=== PATIENT | male | born 1980 | race African-American/Black ===

== ENCOUNTER 2018-09-05 05:04 | Emergency (ER) | payer SELFPAY ==
[~2018-09-05] VITALS: Ht 189.2 cm; Wt 95.9 kg
[~2018-09-05 05:04] MED LIST: ALBU8HFA IH; METF-960 PO
[2018-09-05 05:24] LABS: GLUCOSE,POINT OF CARE 190 MG/DL (70-110)
[2018-09-05 06:15] VITALS: BP 138/83
== END 2018-09-05 06:50 | disposition home or self-care (01) ==
LOC: EMS 05:04
DX: S60.221A Contusion of right hand, initial encounter (principal); J45.909 Unspecified asthma, uncomplicated; E11.9 Type 2 diabetes mellitus without complications; F17.210 Nicotine dependence, cigarettes, uncomplicated; F12.90 Cannabis use, unspecified, uncomplicated; Y35.811A Legal intervention involving manhandling, law enforcement official injured, initial encounter; Y93.89 Activity, other specified; Y92.89 Other specified places as the place of occurrence of the external cause; Y99.8 Other external cause status
CPT/HCPCS: 99406

== ENCOUNTER 2022-05-15 18:37 | Emergency (ER) | payer MEDICAID ==
[~2022-05-15] VITALS: Ht 188 cm; Wt 109.1 kg
[2022-05-15] MEDS ORDERED: CefTRIAXone SODIUM 1 GM/VIAL IM ONE (19:30)
[2022-05-15] MEDS ORDERED: LIDOCAINE/PF 1% 2 ML VIAL IM ONE (19:30)
[2022-05-15] MEDS ORDERED: DOXYCYCLINE HYCLATE 100 MG TABLET PO ONE (19:30)
[2022-05-15] MEDS ORDERED: INSULIN REGULAR, HUMAN 100 UNITS/ML SQ ONE (19:30)
[2022-05-15 20:05] LABS: GLUCOSE,POINT OF CARE 293 MG/DL (70-110)
[2022-05-15 20:15] VITALS: BP 165/80
[2022-05-15] MEDS ORDERED: DOXY-354 PO (20:17)
[2022-05-15] MEDS ORDERED: CEPH-558 PO (20:17)
[2022-05-15] MEDS ORDERED: METF-1211 PO (20:17)
[2022-05-15] MEDS ORDERED: LANC-893 TP (20:17)
[2022-05-15] MEDS ORDERED: glucometer (20:17)
== END 2022-05-15 20:36 | disposition home or self-care (01) ==
LOC: EMS 18:40
DX: L02.415 Cutaneous abscess of right lower limb (principal); L03.115 Cellulitis of right lower limb; E11.65 Type 2 diabetes mellitus with hyperglycemia; J45.909 Unspecified asthma, uncomplicated; F17.210 Nicotine dependence, cigarettes, uncomplicated; F12.90 Cannabis use, unspecified, uncomplicated; Z98.890 Other specified postprocedural states; Z91.119 Patient's noncompliance with dietary regimen due to unspecified reason
CPT/HCPCS: 99284; 10060; 82962; 96372; J0696; J1815; J3490

== ENCOUNTER 2022-05-18 18:07 | Emergency (ER) | payer MEDICAID ==
[~2022-05-18] VITALS: Ht 188 cm; Wt 118.2 kg
[~2022-05-18 18:07] MED LIST changes: -ALBU8HFA IH; +CEPH-558 PO; +DOXY-354 PO; +LANC-893 TP; +METF-1211 PO; -METF-960 PO; +glucometer
[2022-05-18 18:17] VITALS: BP 138/96
== END 2022-05-18 21:55 | disposition home or self-care (01) ==
LOC: EMS 18:18
DX: L02.415 Cutaneous abscess of right lower limb (principal); J45.909 Unspecified asthma, uncomplicated; E11.9 Type 2 diabetes mellitus without complications; F17.210 Nicotine dependence, cigarettes, uncomplicated; F12.90 Cannabis use, unspecified, uncomplicated; Z98.890 Other specified postprocedural states
CPT/HCPCS: 99283; Z7502

== ENCOUNTER 2022-05-30 02:07 | Emergency (ER) | payer MEDICAID ==
[~2022-05-30] VITALS: Ht 188 cm; Wt 118.2 kg
[2022-05-30] MEDS ORDERED: PIPERACILLIN/TAZO 3.375 GM/D5W 50 ML IV ONE (04:15)
[2022-05-30] MEDS ORDERED: 0.9% SODIUM CHLORIDE 10 ML SYRINGE IVP PRN (04:15)
[2022-05-30] MEDS ORDERED: VANCOMYCIN 1GM/WATER(PEG/NADA) 200 ML IV ONE (04:15)
[2022-05-30 04:43] LABS: BASOPHILS % (AUTO) 0.3 % (0.0-2.0); EOSINOPHILS % (AUTO) 0.3 % (1.0-6.0); HEMATOCRIT 42.6 % (41-53); HEMOGLOBIN 14.6 g/dL (13.5-17.5); LYMPHOCYTES # (AUTO) 2.2 K/uL (1.0-4.8); LYMPHOCYTES % (AUTO) 12.9 % (22.0-44.0); MEAN CORPUSCULAR HEMOGLOBIN 28.2 pg (26.0-34.0); MEAN CORPUSCULAR HGB CONC 34.2 G/dL (31.0-37.0); MEAN CORPUSCULAR VOLUME 83 fL (80-100); MONOCYTES % (AUTO) 5.9 % (2.0-9.0); NEUTROPHILS # (AUTO) 13.7 K/uL (1.8-7.7); NEUTROPHILS % (AUTO) 80.6 % (40.0-70.0); PLATELET COUNT (AUTO) 257 K/uL (150-450); RED BLOOD CELL COUNT(AUTO) 5.16 MIL/uL (4.50-5.90); RED CELL DISTRIBUTION WIDTH 13.9 % (11.5-14.5)
[2022-05-30 04:52] LABS: ANION GAP 7 mmol/L (8-16); CALCIUM, TOTAL 9.7 mg/dL (8.8-10.5); CARBON DIOXIDE 31 mmol/L (22-29); CHLORIDE 100 mmol/L (98-107); CREATININE 1.26 mg/dL (0.60-1.30); GLOMERULAR FILTR. RATE CALC > 60 mL/min (>60); GLUCOSE,RANDOM 286 mg/dL (70-110); POTASSIUM 4.5 mmol/L (3.5-5.1); SODIUM SERUM 138 mmol/L (136-145); UREA NITROGEN, BLOOD 19 mg/dL (7-18)
[2022-05-30 04:56] LABS: COVID AG,FIA SOURCE NASAL SWAB
[2022-05-30 04:58] LABS: ALANINE AMINOTRANSFERASE 27 U/L (12-78); ALBUMIN 3.6 g/dL (3.4-5.0); ALKALINE PHOSPHATASE 69 U/L (46-116); ASPARTATE AMINOTRANSFERASE 14 U/L (15-37); BILIRUBIN,TOTAL 0.3 mg/dL (0.1-1.0); TOTAL PROTEIN, SERUM 7.8 g/dL (6.4-8.2)
[2022-05-30 08:34] LABS: APPEARANCE,URINE CLEAR (CLEAR); BILIRUBIN,URINE NEGATIVE (NEGATIVE); GLUCOSE, URINE (UA) >=1000 mg/dL (NEGATIVE); KETONES,URINE NEGATIVE (NEGATIVE); LEUKOCYTE ESTERASE ,URINE NEGATIVE (NEGATIVE); NITRATE,URINE NEGATIVE (NEGATIVE); OCCULT BLOOD,URINE NEGATIVE (NEGATIVE); PROTEIN,URINE 30-70 mg/dL (NEGATIVE); SPECIFIC GRAVITIY, URINE 1.023 (1.003-1.030); UROBILINOGEN,URINE <=1.0 mg/dL (<=1.0)
[2022-05-30 08:45] LABS: BACTERIA,URINE None Seen /HPF (None Seen); RBC,URINE None Seen /HPF (0-2); SQUAMOUS EPITHELIAL CELL,UR Few /LPF (None Seen); WBC,URINE 0-2 /HPF (0-5)
[2022-05-30] MEDS ORDERED: CLIN-142 PO (14:39)
[2022-05-30 15:06] VITALS: BP 135/88
== END 2022-05-30 15:32 | disposition left against medical advice (07) ==
LOC: EMS 02:08
DX: L03.031 Cellulitis of right toe (principal); J45.909 Unspecified asthma, uncomplicated; E11.9 Type 2 diabetes mellitus without complications; F12.90 Cannabis use, unspecified, uncomplicated; F17.210 Nicotine dependence, cigarettes, uncomplicated; Z98.890 Other specified postprocedural states; Z20.822 Contact with and (suspected) exposure to COVID-19
CPT/HCPCS: 99285; 73718; 96365; 96366; 87426; 80053; 87205; 81001; 82962; 83605; 85025; 87040; 36415; 93005; 96368; 87070; 84145; J2543; Q9967

== ENCOUNTER 2022-11-15 00:49 | Emergency (ER) | payer MEDICAID ==
[~2022-11-15] VITALS: Ht 188 cm; Wt 109.1 kg
[~2022-11-15 00:49] MED LIST changes: +CLIN-142 PO
[2022-11-15 00:58] VITALS: BP 159/110; PULSE 89; RESP 20; TEMP 98.6
[2022-11-15 01:33] LABS: BASOPHILS % (AUTO) 0.4 % (0.0-2.0); EOSINOPHILS % (AUTO) 0.6 % (1.0-6.0); HEMATOCRIT 43.1 % (41-53); LYMPHOCYTES # (AUTO) 2.2 K/uL (1.0-4.8); LYMPHOCYTES % (AUTO) 18.8 % (22.0-44.0); MEAN CORPUSCULAR HEMOGLOBIN 28.7 pg (26.0-34.0); MEAN CORPUSCULAR HGB CONC 34.7 G/dL (31.0-37.0); MEAN CORPUSCULAR VOLUME 83 fL (80-100); MONOCYTES # (AUTO) 0.8 K/uL (0.1-1.0); MONOCYTES % (AUTO) 6.6 % (2.0-9.0); NEUTROPHILS # (AUTO) 8.8 K/uL (1.8-7.7); NEUTROPHILS % (AUTO) 73.6 % (40.0-70.0); PLATELET COUNT (AUTO) 264 K/uL (150-450); RED BLOOD CELL COUNT(AUTO) 5.22 MIL/uL (4.50-5.90); RED CELL DISTRIBUTION WIDTH 14.4 % (11.5-14.5)
[2022-11-15 01:57] LABS: ANION GAP 6 mmol/L (8-16); CALCIUM, TOTAL 9.2 mg/dL (8.8-10.5); CARBON DIOXIDE 31 mmol/L (22-29); CHLORIDE 100 mmol/L (98-107); GLOMERULAR FILTR. RATE CALC > 60 mL/min (>60); GLUCOSE,RANDOM 307 mg/dL (70-110); POTASSIUM 4.1 mmol/L (3.5-5.1); SODIUM SERUM 137 mmol/L (136-145)
[2022-11-15 02:02] LABS: ALANINE AMINOTRANSFERASE 20 U/L (12-78); ALBUMIN 3.3 g/dL (3.4-5.0); ALKALINE PHOSPHATASE 64 U/L (46-116); ASPARTATE AMINOTRANSFERASE 14 U/L (15-37); BILIRUBIN,TOTAL 0.3 mg/dL (0.1-1.0); TOTAL PROTEIN, SERUM 7.4 g/dL (6.4-8.2)
[2022-11-15] MEDS ORDERED: VALA500T42 PO (02:28)
[2022-11-15] MEDS ORDERED: PRED-554 PO (02:28)
[2022-11-15] MEDS ORDERED: LANO3.5O OD (02:28)
[2022-11-15] MEDS ORDERED: PENI500T2 PO (02:28)
[2022-11-15] MEDS ORDERED: HYDR-4072 PO (02:28)
[2022-11-15] MEDS ORDERED: DEXT15DR21 OD (02:28)
== END 2022-11-15 03:37 | disposition home or self-care (01) ==
LOC: EMS 00:53
DX: G51.0 Bell's palsy (principal); K04.7 Periapical abscess without sinus; M27.69 Other endosseous dental implant failure; E11.65 Type 2 diabetes mellitus with hyperglycemia; J45.909 Unspecified asthma, uncomplicated; E11.9 Type 2 diabetes mellitus without complications; F17.210 Nicotine dependence, cigarettes, uncomplicated; F12.90 Cannabis use, unspecified, uncomplicated; Z98.890 Other specified postprocedural states; Z79.84 Long term (current) use of oral hypoglycemic drugs
CPT/HCPCS: 70450; 80053; 84484; 85025; 93005; 99284

== ENCOUNTER 2023-05-24 14:27 | Emergency (ER) | payer MEDICAID ==
[~2023-05-24] VITALS: Ht 188 cm; Wt 105.9 kg
[~2023-05-24 14:27] MED LIST changes: +DEXT15DR21 OD; +HYDR-4072 PO; +LANO3.5O OD; +PENI500T2 PO; +PRED-554 PO; +VALA500T42 PO
[2023-05-24 14:36] VITALS: BP 130/70; PULSE 89; RESP 12; TEMP 97.3
[2023-05-24 14:46] LABS: GLUCOMETER DEV NAME(LOC) ER.6; GLUCOSE,POINT OF CARE 341 MG/DL (70-110)
[2023-05-24 15:06] LABS: BASOPHILS % (AUTO) 0.4 % (0.0-2.0); EOSINOPHILS % (AUTO) 1.2 % (1.0-6.0); HEMOGLOBIN 12.6 g/dL (13.5-17.5); LYMPHOCYTES # (AUTO) 1.5 K/uL (1.0-4.8); LYMPHOCYTES % (AUTO) 14.1 % (22.0-44.0); MEAN CORPUSCULAR HEMOGLOBIN 27.9 pg (26.0-34.0); MEAN CORPUSCULAR HGB CONC 34.9 G/dL (31.0-37.0); MEAN CORPUSCULAR VOLUME 80 fL (80-100); MONOCYTES # (AUTO) 0.8 K/uL (0.1-1.0); MONOCYTES % (AUTO) 7.6 % (2.0-9.0); NEUTROPHILS # (AUTO) 8.4 K/uL (1.8-7.7); NEUTROPHILS % (AUTO) 76.7 % (40.0-70.0); PLATELET COUNT (AUTO) 289 K/uL (150-450); RED CELL DISTRIBUTION WIDTH 14.3 % (11.5-14.5); WHITE BLOOD COUNT (AUTO) 10.9 K/uL (4.5-11.0)
[2023-05-24] MEDS ORDERED: HYDR25TA PO (15:06)
[2023-05-24] MEDS: KETOROLAC TROMETHAMINE 30 MG/ML VIAL IM ONE (15:22)
[2023-05-24 15:36] LABS: ANION GAP 6 mmol/L (8-16); CALCIUM, TOTAL 9.1 mg/dL (8.8-10.5); CARBON DIOXIDE 31 mmol/L (22-29); CHLORIDE 99 mmol/L (98-107); GLOMERULAR FILTR. RATE CALC > 60 mL/min (>60); GLUCOSE,RANDOM 282 mg/dL (70-110); POTASSIUM 3.5 mmol/L (3.5-5.1); SODIUM SERUM 136 mmol/L (136-145); UREA NITROGEN, BLOOD 13 mg/dL (7-18)
[2023-05-24 15:41] LABS: ALANINE AMINOTRANSFERASE 74 U/L (12-78); ALBUMIN 3.2 g/dL (3.4-5.0); ALKALINE PHOSPHATASE 56 U/L (46-116); ASPARTATE AMINOTRANSFERASE 121 U/L (15-37); BILIRUBIN,TOTAL 0.3 mg/dL (0.1-1.0)
[2023-05-24] MEDS: BACITRACIN 0.9 GM PACKET OINTMENT TP ONE (16:18)
== END 2023-05-24 16:23 | disposition home or self-care (01) ==
LOC: EMS 14:27
DX: S80.11XA Contusion of right lower leg, initial encounter (principal); T14.8XXA Other injury of unspecified body region, initial encounter; E11.9 Type 2 diabetes mellitus without complications; J45.909 Unspecified asthma, uncomplicated; Z86.73 Personal history of transient ischemic attack (TIA), and cerebral infarction without residual deficits; F17.210 Nicotine dependence, cigarettes, uncomplicated; F12.90 Cannabis use, unspecified, uncomplicated; Y08.89XA Assault by other specified means, initial encounter; Y93.89 Activity, other specified; Y92.89 Other specified places as the place of occurrence of the external cause; Y99.8 Other external cause status
CPT/HCPCS: 99283; 80053; 82962; 85025; 36415; 96372; J1885

== ENCOUNTER 2023-08-15 16:10 | Emergency (ER) | payer MEDICAID ==
[~2023-08-15] VITALS: Ht 188 cm; Wt 104.5 kg
[~2023-08-15 16:10] MED LIST changes: -CEPH-558 PO; -CLIN-142 PO; -DOXY-354 PO; +HYDR25TA PO; -PENI500T2 PO; -PRED-554 PO; -VALA500T42 PO
[2023-08-15 16:48] VITALS: BP 144/97; PULSE 80; RESP 18; TEMP 97.9
[2023-08-17] MEDS ORDERED: METF-1211 PO (06:45)
== END 2023-08-15 20:34 | disposition left against medical advice (07) ==
LOC: EMS 16:16
DX: R20.0 Anesthesia of skin (principal); Z53.21 Procedure and treatment not carried out due to patient leaving prior to being seen by health care provider
CPT/HCPCS: 82962